=== PATIENT | male | born 1970 | race Caucasian/White ===

== ENCOUNTER → 2020-06-20 11:10 | Outpatient (BNVA) | payer OTHER, SELFPAY | PROVIDERS: PCP Nurse Practitioner Family; Visit Provider Nurse Practitioner Family | DX: Z20.828 Contact with and (suspected) exposure to other viral communicable diseases (principal); R10.11 Right upper quadrant pain | CPT/HCPCS: 80053; 85025; 87635 ==

== ENCOUNTER 2020-07-04 10:05 | Outpatient (CLI) | payer SELFPAY ==
--- NOTE | 2020-07-04 | US_ITS ---
WS: [id number] RIGHT UPPER QUADRANT ULTRASOUND HISTORY: R10.11 - Right upper quadrant pain COMPARISON: None available. Liver: 15.5 cm in length. Normal size liver. No bile duct dilatation or mass. Gallbladder: Normally distended gallbladder with no stones or wall thickening. CBD: 0.6 cm, top normal size. No intrahepatic dilatation. Pancreas: Normal size and echogenicity. Right kidney: 12.2 cm in length. Normal size and echogenicity. No hydronephrosis or mass. Aorta and IVC: Unremarkable abdominal aorta and IVC. No ascites. US/US abdomen limited 19996 IMPRESSION: 1. No cholelithiasis. 2. Common bile duct is top normal size.
== END 2020-07-04 10:06 | disposition home or self-care (01) ==
LOC: RAD 10:10
PROVIDERS: Visit Provider Nurse Practitioner Family
DX: R10.11 Right upper quadrant pain (principal)
CPT/HCPCS: 76705

== ENCOUNTER → 2020-09-13 10:23 | Outpatient (BNVA) | payer SELFPAY | PROVIDERS: PCP Nurse Practitioner Family; Visit Provider Internal Medicine | DX: Z01.812 Encounter for preprocedural laboratory examination (principal); Z20.822 Contact with and (suspected) exposure to COVID-19 | CPT/HCPCS: 87635 ==

== ENCOUNTER → 2021-03-28 09:07 | Outpatient (BNVA) | payer SELFPAY | PROVIDERS: PCP Nurse Practitioner Family; Visit Provider Internal Medicine | DX: Z20.822 Contact with and (suspected) exposure to COVID-19 (principal); K92.1 Melena; R10.13 Epigastric pain | CPT/HCPCS: 87635 ==

== ENCOUNTER → 2021-05-21 11:08 | Outpatient (BNVA) | payer SELFPAY | PROVIDERS: PCP Nurse Practitioner Family; Visit Provider Nurse Practitioner Family | DX: L40.0 Psoriasis vulgaris (principal) | CPT/HCPCS: 80053; 85025 ==

== ENCOUNTER → 2024-05-21 16:26 | Outpatient (BNVA) | payer BC, SELFPAY | PROVIDERS: PCP Nurse Practitioner Family; Visit Provider Emergency Medicine | DX: M19.012 Primary osteoarthritis, left shoulder (principal) | CPT/HCPCS: 73030 ==